=== PATIENT | female | born 1995 | race Caucasian/White ===

== ENCOUNTER 2017-03-01 22:10 | Emergency (ER) | payer OTHER ==
[2017-03-01 22:19] VITALS: BP 104/57; BMI 29.2
--- NOTE | 2017-03-01 23:08 | DR.GENAD ---
HPI - PCP Primary Care Physician: nfd - Complaint/Symptoms Chief Complaint Doctors Comments: Patient admits to having sex tonight and afterwards, starting have lower abdominal pain. Her LMP 02/08/17. Chief Complaint:: pt's boyfriend states " shes been having sharp pains in her lower stomach nausea she took 3 test 2 said positive and 1 said negative" denies bleeding or discharge - Source History Provided: Patient - Mode of Arrival Mode of Arrival: Ambulatory - Timing Onset of Chief Complaint: 03/01/17 PMH - PMH Past Medical History: No Past Surgical History: No - Family History History of Family Medical Conditions: Yes Family Medical History: Diabetes Mellitus - Social History Does any household member use tobacco: Yes Alcohol Use: None Do you use any recreational Drugs:: No Lives With: Family Lives Where: Home - infectious screening In the last 2 months have you had wt loss of >10#?: NO Have you had fever, night sweats or hemotysis?: No Have you traveled outside the country in the last 6 months?: No Isolation: Standard ROS - Review of Systems Eyes: No Symptoms Reported ENTM: No Symptoms Reported Respiratoy: No Symptoms Reported Cardiovascular: No Symptoms Reported Gastrointestinal/Abdominal: Nausea Genitourinary: No Symptoms Reported, Other (suprapubic pain) Neurological: No Symptoms Reported Musculoskeletal: No Symptoms Reported Integumentary: No Symptoms Reported Hematologic/Lymphatic: No Symptoms Reported Endocrine: No Symptoms Reported Psychiatric: No Symptoms Reported All Other Systems: Reviewed and Negative PE - Vital Signs Vitals: Temperature 98.7 F Pulse Rate 85 Respiratory Rate 18 Blood Pressure 104/57 O2 Sat by Pulse Oximetry 100 - General General Appearance: Alert, In No Apparent Distress - Head Head Exam: Normal Inspection, Atraumatic - Eyes Eye exam: Normal Appearance, PERRL, EOMI - ENT ENT Exam: Normal Exam External Ear Exam: Normal External Inspection TM/Canal Exam: Bilateral Normal Nose Exam: Normal Nose Exam Mouth Exam: Normal Inspection Throat Exam: Normal Inspection - Neck Neck Exam: Normal Inspection, Full ROM - Chest Chest Inspection: Normal Inspection, Symmetric Chest Wall Rise - Respiratory Respiratory Exam: Normal Lung Sounds Bilat Respiratory Exam: Bilateral Clear to Auscultation - Cardiovascular Cardiovascular Exam: Regular Rate, Normal Rhythm - Abdominal Exam Abdominal Exam: Normal Inspection Abdominal Tenderness: Suprapubic - Extremities Extremities Exam: Normal Inspection, Full ROM - Back Back Exam: Normal Inspection, Full ROM - Neurologic Neurological Exam: Alert, Oriented X3, CN II-XII Intact - Psychiatric Psychiatric Exam: Normal Affect, Normal Mood - Skin Skin Exam: Warm, Dry, Intact ROR - Labs Reviewed Laboratory: Specimen Type Clean catch urine 03/01/17 22:58 Urine Color Yellow (YELLOW) 03/01/17 22:58 Urine Appearance Clear (CLEAR) 03/01/17 22:58 Urine pH 6.0 (5.0 - 8.0) 03/01/17 22:58 Ur Specific [place] 1.020 (1.000-1.030) 03/01/17 22:58 Urine Protein Negative (NEGATIVE) 03/01/17 22:58 Urine Glucose (UA) Negative (NEGATIVE) 03/01/17 22:58 Urine Ketones Negative (NEGATIVE) 03/01/17 22:58 Urine Occult Blood 1+ (NEGATIVE) 03/01/17 22:58 Urine Nitrite Negative (NEGATIVE) 03/01/17 22:58 Urine Bilirubin Negative (NEGATIVE) 03/01/17 22:58 Urine Urobilinogen Normal (NORMAL) 03/01/17 22:58 Ur Leukocyte Esterase 1+ (NEGATIVE) 03/01/17 22:58 Urine RBC 0-3 /HPF (NEGATIVE) 03/01/17 22:58 Urine WBC 1-4 /HPF (NEGATIVE) 03/01/17 22:58 Ur Squamous Epith Cells Few /HPF (NEGATIVE) 03/01/17 22:58 Urine Bacteria Trace /HPF (NEGATIVE) 03/01/17 22:58 Ur Culture Indicated? No/not indicated 03/01/17 22:58 - Diagnosis Discharge Problem: Dyspareunia UTI (urinary tract infection) Qualifiers: Urinary tract infection type: urethritis Qualified Code(s): N34.2 - Other urethritis - Discharge Plan Condition: Stable - Follow ups/Referrals Follow ups/Referrals: N[facility],None [Primary Care Provider] - 3 days - Instructions
[2017-03-01 23:09] LABS: BILIRUBIN,URINE NEGATIVE (NEGATIVE); BLOOD/HEMOGLOBIN,URINE 1+ (NEGATIVE); GLUCOSE, URINE NEGATIVE (NEGATIVE); KETONES,URINE NEGATIVE (NEGATIVE); LEUKOCYTE ESTERASE ,URINE 1+ (NEGATIVE); NITRITES,URINE NEGATIVE (NEGATIVE); PROTEIN,URINE NEGATIVE (NEGATIVE); UROBILINOGEN,URINE NORMAL (NORMAL)
[2017-03-01 23:23] LABS: APPEARANCE,URINE CLEAR (CLEAR); BACTERIA,URINE TRACE /HPF (NEGATIVE); COLOR,URINE YELLOW (YELLOW); RBC,URINE 0-3 /HPF (NEGATIVE); SQUAMOUS EPITHELIAL CELL,UR FEW /HPF (NEGATIVE)
== END 2017-03-02 | disposition home or self-care (01) ==
LOC: ER 22:28
DX: N94.10 Unspecified dyspareunia (principal); N34.2 Other urethritis
CPT/HCPCS: 81001; 99282